=== PATIENT | female | born 2000 | race Caucasian/White ===

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

== ENCOUNTER 2020-12-06 18:59 | Emergency (ER) | payer SELFPAY ==
[~2020-12-06] VITALS: Ht 175.3 cm; Wt 106.6 kg
[2020-12-06 19:20] VITALS: BP_SYST 133
[2020-12-06] MEDS ORDERED: PSEU30TA36 PO (21:11)
[2020-12-06] MEDS ORDERED: IBUP-1969 PO (21:11)
[2020-12-06 21:23] VITALS: BP_SYST 133
== END 2020-12-06 21:23 | disposition home or self-care (01) ==
LOC: SED 18:59
DX: J40 Bronchitis, not specified as acute or chronic (principal); Z20.822 Contact with and (suspected) exposure to COVID-19
CPT/HCPCS: 36415; 71045; 81025; 99284

== ENCOUNTER 2021-10-20 11:01 | Emergency (ER) | payer MEDICAID, OTHER ==
[~2021-10-20] VITALS: Ht 175.3 cm; Wt 122.5 kg
[~2021-10-20 11:01] MED LIST: IBUP-1969 PO; PSEU30TA36 PO
[2021-10-20 11:05] VITALS: BP_SYST 131
--- NOTE | 2021-10-20 11:07 | NUR ---
Patient to ER bed 6 to gown for evaluation. Side rails up. Assumed care.
--- NOTE | 2021-10-20 11:10 | NUR ---
Pt. came in with c/o pain to small localized area on Right FA that started yesterday when was pushing trash down a trash compactor at work, nothing hit her but felt a ricochet and had instant pain 10/10 that now has subsided to 7/10, no swelling or bruising noted.
--- NOTE | 2021-10-20 11:14 | NUR ---
ER at bedside examining patient.
[2021-10-20] MEDS ORDERED: IBUP-1969 PO (11:18)
[2021-10-20 11:54] VITALS: BP_SYST 122
--- NOTE | 2021-10-20 11:54 | NUR ---
Patient given written and verbal discharge instructions and verbalizes understanding. ER Dr. Xiao discussed with patient the results and treatment provided. Patient in stable condition. ID arm band removed. Rx of Motrin given. Patient educated on pain management and to follow up with PMD. Pain Scale 5. Opportunity for questions provided and answered. Medication side effect fact sheet provided.
== END 2021-10-20 11:54 | disposition home or self-care (01) ==
LOC: SED 11:01
DX: M65.4 Radial styloid tenosynovitis [de Quervain] (principal)
CPT/HCPCS: 99281; 99282